=== PATIENT | male | born 1930 | race Caucasian/White ===

== ENCOUNTER 2017-11-25 15:40 | Inpatient (IN) | payer MEDICARE ==
[~2017-11-25] VITALS: Ht 175.2 cm; Wt 120.9 kg
--- NOTE | ~2017-11-25 | PR ---
[place], [place] PROGRESS NOTE [facility]: [facility] [id number] UNIT #: [id number] ROOM: 508 DOCTOR: MINDA DUNN MD,HENRY BIRTHDATE: [birth year] DOS: 11/29/2017 PULMONARY PROGRESS NOTE SUBJECTIVE: The patient noted comfortable at this time, resting on the bed. Continues to have resolution of acute respiratory symptoms. He had been using CPAP last night. Denies symptoms of chest pain or any hemoptysis. Denies symptoms of abdominal pain. The patient stated some difficulty of urination, which has been addressed by the primary attending. OBJECTIVE: VITAL SIGNS: Normal temperature, respiratory rate 20, heart rate 77, blood pressure 149/65 this morning. Pulse oxygen saturation recorded on room air as 96% saturation. HEENT: Head is atraumatic. Eyes nonicterus. NECK: Supple. CARDIOVASCULAR: S1, S2 is audible. LUNGS: Noted without any wheezing or crackles at the present time. ABDOMEN: Soft, nontender. Bowel sounds present. EXTREMITIES: Noted without any acute edema. Chronic obesity. IMPRESSION: 1. Resolving acute exacerbation of bronchial asthma, acute bronchitis. 2. The patient with benign prostatic hypertrophy as well. PLAN OF TREATMENT: The patient has been started on the prednisone tapering dose. Solu-Medrol was discontinued. Continue in the meantime with the present therapy, plan of management and care. Discharge planning could be started from the pulmonary standpoint. HENRY PERLA MD CM:PNTRANS [id number] HENRY DUNN MD 11/29/17 1303 interface
--- NOTE | ~2017-11-25 | CON ---
[place], [place] REPORT OF CONSULTATION NAME: ZAID HOFF [facility] #: [id number] UNIT #: [id number] ROOM: 508 DOCTOR: HENRY MCCARTY MD BIRTHDATE: [birth year] DOS: 11/27/2017 PULMONARY CONSULTATION, EVALUATION, MANAGEMENT CONSULTATION REQUESTED BY: Hospitalist service REASON FOR CONSULTATION: Assessment of abnormal respiratory symptoms, pneumonia, and others. HISTORY OF PRESENT ILLNESS: This is an 87-year-old white male patient, presented to the Emergency Room on 11/25/2017. The patient came into the hospital Emergency Room. The patient started having symptoms of fever and body aches. The patient's symptoms have been reported about 4-5 days prior to admission to the hospital. The symptoms have been noted gradually worsened with general weakness and fatigue. The patient also developed coughing. He has reported temperature elevation at home up to 101 degrees Fahrenheit. The patient was noted with symptoms of chest congestion and coughing ____ expectoration of any sputum. Denies any symptoms of hemoptysis. The patient denies symptoms of acute chest pain at this time. The patient does report symptoms of wheezing as well. He has been noted with very partial improvement in the patient's symptoms since hospitalization. REVIEW OF SYSTEMS: CONSTITUTIONAL: He does still complain of symptoms of fatigue and tiredness. The patient did have symptoms of fever and chills at home prior to hospitalization. EYES: Denies any burning, redness, or discharge. EARS, NOSE AND THROAT: Denies sore throat, hoarseness, otalgia, postnasal drainage, or epistaxis. CARDIOVASCULAR: Denies anginal pain, edema, or pain in lower extremities. GASTROINTESTINAL: Denies dysphagia, nausea, vomiting, diarrhea, abdominal pain, hematemesis, melena, or hematochezia. SKIN: Denies abnormal lesions or rashes. MUSCULOSKELETAL: Denies any acute joint pain. Noted aches and pains, which have been resolved at this time. CENTRAL NERVOUS SYSTEM: No dizziness, headache, diplopia, or syncopal episodes. Remaining systems were reviewed, they were noted all negative. PAST MEDICAL HISTORY: Known with history of: 1. Obstructive sleep apnea disorder. The patient follows up in the office for that. 2. History of coronary artery disease. 3. BPH. 4. Hyperlipidemia. 5. Essential hypertension. 6. Vitamin D deficiency. PAST SURGICAL HISTORY: 1. Cholecystectomy. 2. Cardiac catheterization and coronary stents insertion. [place], [place] REPORT OF CONSULTATION NAME: ZAID HOFF UNIT #: [id number] ROOM: 508 DOCTOR: MINDA DUNN MD,HENRY BIRTHDATE: [birth year] 3. Tonsillectomy as a child. SOCIAL HISTORY: The patient is . He lives at home. Denies history of tobacco, alcohol, or illicit drug use. FAMILY HISTORY: The patient's father at age 7575 years old of surgical complication. Mother from complications related to Alzheimer's disease with a history of CAD as well. HOME MEDICATIONS: Reported use of the CPAP, Norvasc, aspirin, Lipitor, vitamin D, Gypsy, losartan, multivitamin, and Flomax. DRUG ALLERGIES: NOTED ALLERGY TO IODINE. PHYSICAL EXAMINATION: GENERAL: This is an 87-year-old male who has been currently noted to be awake and alert, without any acute distress. Height is 5 feet 9 inches, weight of 266 pounds, BMI 39.3. VITAL SIGNS: Which were recorded, on admission his temperature 101.7 degrees Fahrenheit, currently noted afebrile, respiratory rate 16-18, heart rate 82-75, blood pressure 136/64-129/53. Pulse oxygen saturation noted on room air is 95% saturation. HEENT: Chronic obesity. Head was atraumatic. Eyes nonicterus. NECK: Supple. CARDIOVASCULAR: S1, S2 is audible. LUNGS: Noted with decreased breath sounds in the lungs bilaterally with expiratory wheezing. There were no crackles. ABDOMEN: Soft, nontender. Bowel sounds present. EXTREMITIES: Noted without any acute edema, clubbing, or cyanosis. CENTRAL NERVOUS SYSTEM: Cranial nerves 2-12 were intact. MUSCULOSKELETAL: Noted without any acute deformities. SKIN: Noted without any lesions or rashes. LABORATORY DATA: Lactic acid noted 1.4 on admission, 11/25/2017. CMP on 11/25/2017: BUN 29, creatinine 1.78, glucose 279. Electrolytes otherwise normal. CBC on 11/25/2017 on admission: WBC count 12.5, hemoglobin and hematocrit normal, and platelet count 124,000, mildly decreased. Influenza A and B nasal washing antigens were negative. CBC on 11/26/2017: WBC count 11.5, hemoglobin 13.3, hematocrit 41.5, and platelet count 111,000, further reduction in platelets noticed from admission. BMP noted BUN 25, creatinine 1.67, glucose 164. Creatinine noted decreased from admission. CBC that was done this morning shows WBC count normal, hemoglobin 11.9, platelet count was noted further decreased of 104,000. BMP today: BUN 18, normal; creatinine 1.53, decreased from previous levels. Carbon dioxide 20. Albumin 2.6. IMAGING DATA: Ultrasound of the kidneys that was done on 11/26/2017 shows severe renal cortical thinning noted without evidence of hydronephrosis. Chest x-ray that was done 1 view on 11/25/2017 was reviewed, does not show any acute visible abnormalities. CT scan chest done on the same date without contrast was personally reviewed. Parenchymal window was reviewed. There was a cluster of [place], [place] REPORT OF CONSULTATION NAME: ZAID HOFF UNIT #: [id number] ROOM: 508 DOCTOR: YANELI MCCARTY MDM BIRTHDATE: [birth year] nodules noted predominantly in the left lower lobe with some area of consolidation, coalescence of the nodules. Remaining lung was noted clear of any acute pulmonary infiltration other abnormalities. IMPRESSION: 1. The patient will be currently admitted to the hospital. The patient's symptoms appear to be infectious in origin with possible consideration of current pulmonary nodules related to acute bacterial infection or viral infection considered. 2. Acute kidney injury definitely with chronic kidney disease noticed, secondary to most likely hypovolemia is likely. 3. The patient with history of obstructive sleep apnea disorder as well. 4. Acute bronchospasm was also noted with acute exacerbation of bronchial asthma related to current acute active infection. 5. History of chronic severe obesity as well. PLAN OF MANAGEMENT: The patient has been getting Zithromax and Rocephin at this time. Respiratory viral panel will be ordered. Solu-Medrol has been currently given 60 mg b.i.d. dosing, reduction will be done based on improvement in wheezing. If necessary, consider fiberoptic bronchoscopy as well to more accurate sampling of the left lower lobe. Infiltration needs to be monitored as an outpatient to exclude any malignant process after discharge in my office. Other supportive therapy, plan of management and care plan. Usual treatment, other additional therapy. Send the sputum for Gram stain and culture. Monitoring any other culture for the patient will be sent once become available. Changes in antibiotic would not be made. Thank you for allowing me to participate in the care of this patient. HENRY PERLA MD CM:CONSTR:REPORT OF CONSULTATION 1216 11/27/17 1448 interface
--- NOTE | ~2017-11-25 | PR ---
[place], [place] PROGRESS NOTE NAME: ZAID HOFF UNIT #: [id number] ROOM: 508 DOCTOR: HENRY MCCARTY MD BIRTHDATE: [birth year] DOS: 11/28/2017 SUBJECTIVE: The patient noted comfortable without any acute distress. Shortness of breath, cough and the other symptoms have been decreased significantly. Using the CPAP for the medical management of previously noted obstructive sleep apnea disorder. Denies any chest pain. OBJECTIVE: VITAL SIGNS: Normal temperature, respiratory rate 20, heart rate 84, blood pressure 159/62, pulse oxygen saturation on room air 96% saturation. HEENT: Chronic obesity. Head was atraumatic. Eyes, no icterus. NECK: Supple. It was obese. CARDIOVASCULAR SYSTEM: S1, S2 audible. LUNGS: Noted with reduction in the wheezing in the lungs bilaterally. ABDOMEN: Soft, nontender. Bowel sounds present. EXTREMITIES: Noted with chronic obesity. LABORATORY DATA: Chest x-ray that was done this morning noted without any acute abnormalities. BMP today, glucose 452. BUN 22, creatinine 1.61. CBC: Normal WBC count and platelet count is still noted decreased as 114,000. IMPRESSION: 1. The patient who has been noted with acute bronchitis with exacerbation of bronchial asthma, new onset. 2. Thrombocytopenia, which has been noted improving. The chest x-ray does not show acute pulmonary infiltration. 3. Chronic obstructive sleep apnea disorder, which has been treated with the CPAP. 4. Uncontrolled hyperglycemia secondary to corticosteroids. PLAN OF TREATMENT: Agree with the reduction of Solu-Medrol since the wheezing has been improving. Continue bronchodilators, antibiotics, and other treatment plan of management. Usual care. [place], [place] PROGRESS NOTE NAME: ZAID HOFF UNIT #: [id number] ROOM: 508 DOCTOR: HENRY MCCARTY MD BIRTHDATE: [birth year] HENRY PERLA MD CM:PNTRANS 1326 [id number] HENRY DUNN MD 11/28/17 1459 interface
[~2017-11-25 15:40] MED LIST: COMBIVENT1 ARO IH; MEDROL DOSEPAK4 MG PO; ZITHROMAX Z PA250 MG PO
[2017-11-25 15:46] VITALS: BP 145/91
[2017-11-25 16:11] LABS: BASO % 0.2 % (0.0-1.0); EOS # 0.1 10*3/uL (0.0-0.4); EOS % 0.4 % (1.0-4.0); HEMATOCRIT 42.8 % (42.0-52.0); HEMOGLOBIN 14.1 g/dl (14.0-18.0); LYMPH # 0.6 10*3/uL (1.3-4.4); LYMPH % 5.1 % (27.0-41.0); MEAN CELL VOLUME 94.5 fl (80.0-94.0); MEAN CORPUSCULAR HGB 31.1 pg (27.0-31.0); MEAN CORPUSCULAR HGB CONC 32.9 g/dl (33.0-37.0); MEAN PLATELET VOLUME 9.7 fl (9.6-12.3); MONO # 0.9 10*3/uL (0.1-1.0); NEUT # 10.9 10*3/uL (2.3-7.9); NEUT % 86.9 % (47.0-73.0); PLATELET COUNT AUTOMATED 124 10*3/uL (130-400); RED BLOOD COUNT 4.53 10*6/uL (4.50-5.90); RED CELL DISTRI WIDTH 13.1 % (0-14.5); WHITE BLOOD COUNT 12.5 10*3/uL (4.8-10.8)
[2017-11-25 16:28] LABS: ALBUMIN 3.4 gm/dl (3.1-4.5); ALKALINE PHOSPHATASE 94 U/L (45-117); BUN 29 mg/dl (7-24); CHLORIDE 105 mmol/L (98-107); CREATININE 1.78 mg/dL (0.70-1.30); POTASSIUM 4.4 mmol/L (3.5-5.1); SGOT/AST 21 IU/L (3-35); SGPT/ALT 26 U/L (12-78); SODIUM 137 mmol/L (136-145); TOTAL PROTEIN 6.4 gm/dL (6.4-8.2)
[2017-11-25 16:30] LABS: TROPONIN I < 0.015 ng/ml (<0.045)
[2017-11-25 17:08] VITALS: BP 130/56
[2017-11-25 17:22] LABS: BILIRUBIN NEGATIVE (NEGATIVE); BLOOD NEGATIVE (NEGATIVE); CLARITY CLEAR (CLEAR); COLOR YELLOW (YELLOW); GLUCOSE NEGATIVE (NEGATIVE); KETONE TRACE (NEGATIVE); LEUKO ESTERASE NEGATIVE (NEGATIVE); NITRITE NEGATIVE (NEGATIVE); PH 5.5 (5.0-9.0); UROBILINOGEN 0.2 E.U./dl (0.2-1.0)
[2017-11-25 18:14] VITALS: BP 118/38
[2017-11-25 18:15] VITALS: BP 118/38
[2017-11-25] MEDS ORDERED: LOSARTAN POTAS100 M1 PO (18:35)
[2017-11-25] MEDS ORDERED: ALLEGRA ALLERG180 M2 PO (18:35)
[2017-11-25] MEDS ORDERED: AMLODIPINE BESYL5 MG PO (18:36)
[2017-11-25] MEDS ORDERED: CENTRUM ADULTS1 EACH PO (18:38)
[2017-11-25] MEDS ORDERED: VITAMIN D31000 UNI1 PO (18:39)
[2017-11-25] MEDS ORDERED: ASPIR LOW81 MG PO (18:40)
[2017-11-25] MEDS ORDERED: TAMSULOSIN HCL0.4 MG PO (18:40)
[2017-11-25] MEDS ORDERED: ATORVASTATIN CA20 M1 PO (18:40)
[2017-11-25 20:00] VITALS: BP 114/55
[2017-11-26] VITALS: BP 116/54
[2017-11-26 06:45] LABS: BASO % 0.3 % (0.0-1.0); EOS % 0.3 % (1.0-4.0); HEMATOCRIT 41.5 % (42.0-52.0); HEMOGLOBIN 13.3 g/dl (14.0-18.0); LYMPH # 1.5 10*3/uL (1.3-4.4); LYMPH % 13.1 % (27.0-41.0); MEAN CELL VOLUME 96.3 fl (80.0-94.0); MEAN CORPUSCULAR HGB 30.9 pg (27.0-31.0); MEAN PLATELET VOLUME 10.1 fl (9.6-12.3); MONO # 0.9 10*3/uL (0.1-1.0); MONO % 7.9 % (3.0-9.0); NEUT % 78.1 % (47.0-73.0); PLATELET COUNT AUTOMATED 111 10*3/uL (130-400); RED BLOOD COUNT 4.31 10*6/uL (4.50-5.90); RED CELL DISTRI WIDTH 13.1 % (0-14.5); WHITE BLOOD COUNT 11.5 10*3/uL (4.8-10.8)
[2017-11-26 07:04] LABS: CREATININE 1.67 mg/dL (0.70-1.30); PHOSPHOROUS 2.1 mg/dL (2.5-4.9); POTASSIUM 4.5 mmol/L (3.5-5.1)
[2017-11-26 07:10] LABS: THYROID STIM HORMONE (HS) 0.336 uIU/ml (0.358-4.75)
[2017-11-26 07:46] LABS: VITAMIN D, 25-HYDROXY 31.5 ng/mL (30-100)
[2017-11-26 08:00] VITALS: BP 127/49
[2017-11-26 12:00] VITALS: BP 126/52
[2017-11-26 16:00] VITALS: BP 129/53
[2017-11-26 20:00] VITALS: BP 160/57
[2017-11-27 00:26] VITALS: BP 146/58
[2017-11-27 06:19] LABS: BASO % 0.3 % (0.0-1.0); EOS # 0.1 10*3/uL (0.0-0.4); EOS % 1.1 % (1.0-4.0); HEMATOCRIT 37.1 % (42.0-52.0); HEMOGLOBIN 11.9 g/dl (14.0-18.0); LYMPH # 1.8 10*3/uL (1.3-4.4); LYMPH % 25.8 % (27.0-41.0); MEAN CELL VOLUME 96.1 fl (80.0-94.0); MEAN CORPUSCULAR HGB 30.8 pg (27.0-31.0); MEAN CORPUSCULAR HGB CONC 32.1 g/dl (33.0-37.0); MEAN PLATELET VOLUME 9.9 fl (9.6-12.3); MONO # 0.5 10*3/uL (0.1-1.0); MONO % 7.5 % (3.0-9.0); NEUT # 4.5 10*3/uL (2.3-7.9); NEUT % 64.7 % (47.0-73.0); PLATELET COUNT AUTOMATED 104 10*3/uL (130-400); RED BLOOD COUNT 3.86 10*6/uL (4.50-5.90); RED CELL DISTRI WIDTH 13.5 % (0-14.5)
[2017-11-27 06:46] LABS: ALBUMIN 2.6 gm/dl (3.1-4.5); CREATININE 1.53 mg/dL (0.70-1.30); PHOSPHOROUS 2.9 mg/dL (2.5-4.9); POTASSIUM 3.9 mmol/L (3.5-5.1)
[2017-11-27 06:48] LABS: FREE T4 1.17 ng/dl (0.76-1.46)
[2017-11-27 08:00] VITALS: BP 136/64
[2017-11-27 12:00] VITALS: BP 130/62
[2017-11-27 16:00] VITALS: BP 155/63
[2017-11-27 20:03] VITALS: BP 165/61
[2017-11-28 00:13] VITALS: BP 142/69
[2017-11-28 06:15] LABS: BASO % 0.2 % (0.0-1.0); HEMATOCRIT 39.3 % (42.0-52.0); HEMOGLOBIN 12.9 g/dl (14.0-18.0); LYMPH # 0.7 10*3/uL (1.3-4.4); LYMPH % 10.8 % (27.0-41.0); MEAN CELL VOLUME 93.1 fl (80.0-94.0); MEAN CORPUSCULAR HGB 30.6 pg (27.0-31.0); MEAN CORPUSCULAR HGB CONC 32.8 g/dl (33.0-37.0); MEAN PLATELET VOLUME 10.1 fl (9.6-12.3); MONO # 0.1 10*3/uL (0.1-1.0); MONO % 2.3 % (3.0-9.0); NEUT # 5.2 10*3/uL (2.3-7.9); NEUT % 86.2 % (47.0-73.0); PLATELET COUNT AUTOMATED 114 10*3/uL (130-400); RED BLOOD COUNT 4.22 10*6/uL (4.50-5.90); RED CELL DISTRI WIDTH 13.1 % (0-14.5)
[2017-11-28 06:38] LABS: ALBUMIN 2.9 gm/dl (3.1-4.5); CREATININE 1.61 mg/dL (0.70-1.30); PHOSPHOROUS 2.6 mg/dL (2.5-4.9); POTASSIUM 4.5 mmol/L (3.5-5.1)
[2017-11-28 08:00] VITALS: BP 159/64
[2017-11-28 12:00] VITALS: BP 115/67; BP 139/55
[2017-11-28 16:00] VITALS: BP 149/65
[2017-11-28 20:12] VITALS: BP 149/73
[2017-11-29] VITALS: BP 154/67
[2017-11-29 08:00] VITALS: BP 151/64
[2017-11-29 08:18] LABS: CREATININE 1.67 mg/dL (0.70-1.30); POTASSIUM 4.6 mmol/L (3.5-5.1)
[2017-11-29 12:00] VITALS: BP 149/65
[2017-11-29] MEDS ORDERED: PREDNISONE10 MG PO (15:22)
[2017-11-29] MEDS ORDERED: LOSARTAN POTASS25 M1 PO (15:22)
[2017-11-29] MEDS ORDERED: PROSCAR5 M1 PO (15:22)
[2017-11-29] MEDS ORDERED: CEFDINIR300 MG PO (15:22)
[2017-11-29] MEDS ORDERED: LEVEMIR FL100 UNIT/1 SQ (15:22)
[2017-11-29] MEDS ORDERED: GLUCTESTSTRIP (15:22)
[2017-11-29] MEDS ORDERED: ONETOUCH LANCE1 EACH MC (15:22)
[2017-11-29] MEDS ORDERED: FLOMAX0.4 MG PO (15:22)
[2017-11-29] MEDS ORDERED: AVPAK AZITHROM250 M1 PO (15:22)
[2017-11-29] MEDS ORDERED: Humalog SQ (15:22)
[2017-11-29 16:00] VITALS: BP 151/61
== END 2017-11-29 17:31 | disposition home or self-care (01) | DRG 871 ==
LOC: ED 15:40 → EDHOLD 16:56 → 5E 16:56
PROVIDERS: Emergency Medicine; Internal Medicine; Internal Medicine Hospice and Palliative Medicine; Student in an Organized Health Care Education/Training Program
PROC: 5A09357 Assistance with Respiratory Ventilation, Less than 24 Consecutive Hours, Continuous Positive Airway Pressure (ICD-10-PCS; principal; 2017-11-26)
DX: A41.9 Sepsis, unspecified organism (principal); J96.00 Acute respiratory failure, unspecified whether with hypoxia or hypercapnia; N17.0 Acute kidney failure with tubular necrosis; J18.1 Lobar pneumonia, unspecified organism; D69.6 Thrombocytopenia, unspecified; E11.65 Type 2 diabetes mellitus with hyperglycemia; E11.22 Type 2 diabetes mellitus with diabetic chronic kidney disease; E44.1 Mild protein-calorie malnutrition; J45.901 Unspecified asthma with (acute) exacerbation; E87.8 Other disorders of electrolyte and fluid balance, not elsewhere classified; E83.39 Other disorders of phosphorus metabolism; E83.51 Hypocalcemia; R33.8 Other retention of urine; G47.33 Obstructive sleep apnea (adult) (pediatric); I25.10 Atherosclerotic heart disease of native coronary artery without angina pectoris; E78.5 Hyperlipidemia, unspecified; N40.1 Benign prostatic hyperplasia with lower urinary tract symptoms; J20.9 Acute bronchitis, unspecified; T38.0X5A Adverse effect of glucocorticoids and synthetic analogues, initial encounter; E83.41 Hypermagnesemia; I12.9 Hypertensive chronic kidney disease with stage 1 through stage 4 chronic kidney disease, or unspecified chronic kidney disease; N18.9 Chronic kidney disease, unspecified; E66.9 Obesity, unspecified; Z68.39 Body mass index [BMI] 39.0-39.9, adult; Z79.82 Long term (current) use of aspirin; Z88.8 Allergy status to other drugs, medicaments and biological substances; Z79.899 Other long term (current) drug therapy; Z90.49 Acquired absence of other specified parts of digestive tract; Z95.5 Presence of coronary angioplasty implant and graft; Z82.49 Family history of ischemic heart disease and other diseases of the circulatory system; Z81.8 Family history of other mental and behavioral disorders; Y92.89 Other specified places as the place of occurrence of the external cause

== ENCOUNTER 2017-12-12 05:47 | Emergency (ER) | payer MEDICARE ==
[~2017-12-12] VITALS: Ht 175.2 cm; Wt 116.1 kg
[2017-12-12 05:47] VITALS: BP 138/56
[~2017-12-12 05:47] MED LIST changes: +ALLEGRA ALLERG180 M2 PO; +AMLODIPINE BESYL5 MG PO; +ASPIR LOW81 MG PO; +ATORVASTATIN CA20 M1 PO; +AVPAK AZITHROM250 M1 PO; +CEFDINIR300 MG PO; +CENTRUM ADULTS1 EACH PO; +FLOMAX0.4 MG PO; +GLUCTESTSTRIP; +Humalog SQ; +LEVEMIR FL100 UNIT/1 SQ; +LOSARTAN POTAS100 M1 PO; +LOSARTAN POTASS25 M1 PO; +ONETOUCH LANCE1 EACH MC; +PREDNISONE10 MG PO; +PROSCAR5 M1 PO; +TAMSULOSIN HCL0.4 MG PO; +VITAMIN D31000 UNI1 PO
== END 2017-12-12 06:42 | disposition home or self-care (01) ==
LOC: ED 05:47
DX: R33.9 Retention of urine, unspecified (principal); N40.1 Benign prostatic hyperplasia with lower urinary tract symptoms; I25.10 Atherosclerotic heart disease of native coronary artery without angina pectoris; E78.5 Hyperlipidemia, unspecified; I10 Essential (primary) hypertension; E78.00 Pure hypercholesterolemia, unspecified; G47.33 Obstructive sleep apnea (adult) (pediatric); E11.65 Type 2 diabetes mellitus with hyperglycemia; Z90.49 Acquired absence of other specified parts of digestive tract; Z95.5 Presence of coronary angioplasty implant and graft; Z90.89 Acquired absence of other organs; Z87.442 Personal history of urinary calculi; Z79.82 Long term (current) use of aspirin; Z79.899 Other long term (current) drug therapy

== ENCOUNTER 2017-12-27 07:32 | Emergency (ER) | payer MEDICARE ==
[~2017-12-27] VITALS: Wt 115.7 kg
[2017-12-27 08:09] VITALS: BP 112/43
[2017-12-27 08:13] LABS: BILIRUBIN NEGATIVE (NEGATIVE); BLOOD 3+ (NEGATIVE); CLARITY CLEAR (CLEAR); COLOR YELLOW (YELLOW); GLUCOSE NEGATIVE (NEGATIVE); KETONE NEGATIVE (NEGATIVE); LEUKO ESTERASE TRACE (NEGATIVE); NITRITE NEGATIVE (NEGATIVE); UROBILINOGEN 0.2 E.U./dl (0.2-1.0)
[2017-12-27 08:19] LABS: BACTERIA 4+; MUCOUS 4+; RBC 51-100 rbc/hpf (0-2)
== END 2017-12-27 08:45 | disposition home or self-care (01) ==
LOC: ED 07:32
PROVIDERS: Emergency Medicine
DX: N40.1 Benign prostatic hyperplasia with lower urinary tract symptoms (principal); R33.8 Other retention of urine; N39.0 Urinary tract infection, site not specified; I10 Essential (primary) hypertension; E11.9 Type 2 diabetes mellitus without complications; I25.10 Atherosclerotic heart disease of native coronary artery without angina pectoris; E78.5 Hyperlipidemia, unspecified; Z79.899 Other long term (current) drug therapy; Z79.82 Long term (current) use of aspirin